=== PATIENT | male | born 1955 | race Caucasian/White ===

== ENCOUNTER 2019-03-18 08:44 | Inpatient (IN) | payer MEDICARE, MEDICAID ==
[~2019-03-18] VITALS: Ht 172.7 cm; Wt 65.8 kg
[2019-03-18 10:54] LABS: BASOPHILS 0.1 % (0-2); EOSINOPHILS 0.1 % (0-7); HEMATOCRIT 48.3 % (42.0-54.0); HEMOGLOBIN 16.7 g/dL (13.5-17.5); IMMATURE GRANULOCYTES 0.3 % (0-5); MCH 31.8 pg (26.0-34.0); MCHC 34.6 g/dL (31.0-37.0); MEAN PLATELET VOLUME 9.9 fL (7.4-10.4); MONOCYTES 3.9 % (2-11); NEUTROPHILS 86.6 % (40-80); PLATELET COUNT 198 10x3/uL (130-400); RBC 5.25 10x6/uL (4.20-6.10); WBC 11.8 10x3/uL (4.8-10.8)
[2019-03-18 11:09] LABS: CALC OSMOLALITY 276 mosm/kg (275-300); CALCIUM 9.7 mg/dL (8.5-10.1); CARBON DIOXIDE 25.8 mmol/L (21.0-32.0); CHLORIDE - SERUM 101 mmol/L (98-107); CREATININE - SERUM 0.8 mg/dL (0.6-1.3); GLUCOSE 112 mg/dL (74-106); POTASSIUM - SERUM 4.1 mmol/L (3.5-5.1); SODIUM 137 mmol/L (136-145); UREA NITROGEN 17 mg/dL (7-18); eGFR NON AFRICAN AMERICAN > 90 mL/min (90-120)
[2019-03-18 11:12] LABS: APTT 28.2 SECONDS (22.8-39.4); INR 1.09 (0.85-1.17); PROTIME 13.6 SECONDS (11.6-15.0)
[2019-03-18 11:14] LABS: ALKALINE PHOSPHATASE 45 U/L (46-116); ALT (SGPT) 28 U/L (10-68); BILIRUBIN - TOTAL 0.54 mg/dL (0.2-1.3); PROTEIN - SERUM 8.7 g/dL (6.4-8.2)
[2019-03-18 12:25] VITALS: BP 127/71; BMI 22.0
[2019-03-18 15:40] LABS: CHOL - HDL RATIO 4.9 ratio (2.3-4.9); LDL-HDL RATIO 3.6 ratio (1.5-3.5)
--- NOTE | 2019-03-18 15:41 | MORECARE ---
CASE MANAGEMENT DISCHARGE SUMMARY PATIENT: MARIA D DE LA FUENTE UNIT: [id number] ADM DATE: 03/18/19 AGE: 64 : 53 SEX: M ROOM/BED: D.2229 AUTHOR: TALA LEYVA PHYSICIAN: REFERRING PHYSICIAN: NAMRATA ALMANZA MD DATE OF SERVICE: 03/18/19 Discharge Plan Patient Name: MARIA D DE LA FUENTE [facility] [facility] 1955 Planned Disposition: Home Anticipated Discharge Date: 03/20/19 Discharge Date: Expected LOS: 2 Initial Reviewer: [email or web address] Initial Review Date: 03/18/2019 Generated: 03/18/19 4:41 pm DCPIA - Discharge Planning Initial Assessment Updated by [email or web address]: Shellie Chavira on 03/18/19 3:39 pm * Is the patient Alert and Oriented? Yes * PCP Dr. Martinez * Pharmacy [facility] * Preadmission Environment Home with Family * ADLs Independent * Equipment None * List name and contact numbers for known caregivers / representatives who currently or will assist patient after discharge: Mia Figueroa - daughter - [phone] Devi De La Fuente - spouse - [phone] * Verbal permission to speak to the caregivers and representatives has been obtained from the patient. Yes * Community resources currently utilized None * Additional services required to return to the preadmission environment? No * Can the patient safely return to the preadmission environment? Yes * Has this patient been hospitalized within the prior 30 days at any hospital? No Patient Name: MARIA D DE LA FUENTE Page [id number] at 1541 All edits/amendments must be made on the electronic document DICTATION DATE: 03/18/19 1540 [employer]: SINCERE 03/18/19 1540 RPT#: [id number] DC DATE: STATUS: ADM IN [facility] [address] [place] [address] END OF REPORT
--- NOTE | 2019-03-18 16:03 | MORECARE ---
CASE MANAGEMENT DISCHARGE SUMMARY PATIENT: MARIA D DE LA FUENTE UNIT: [id number] ADM DATE: 03/18/19 AGE: 64 : 53 SEX: M ROOM/BED: D.2229 AUTHOR: GORDON,DOC PHYSICIAN: REFERRING PHYSICIAN: NAMRATA ALMANZA MD DATE OF SERVICE: 03/18/19 Discharge Plan Patient Name: MARIA D DE LA FUENTE Facility: [facility]:[place] : 1955 Planned Disposition: Home Anticipated Discharge Date: 03/20/19 Discharge Date: Expected LOS: 2 Initial Reviewer: [email or web address] Initial Review Date: 03/18/2019 Generated: 03/18/19 5:03 pm Comments DCP- Discharge Planning Updated by [email or web address]: Shellie Chavira on 03/18/19 2:[address] DC PLAN: To his mother's house whom he cares for 4 nights a week. ANTICIPATED DC NEEDS: Denied known dc needs. CM met with patient to complete initial dc planning assessment. CM educated patient on the CM role and verbal consent given by patient to complete assessment. CM verified patient's address, phone number, and emergency contact phone numbers. Patient lives at home with his . He reports he stays with his elderly mother 4 nights and he rotates this with his brother that stays four nights. At discharge patient plans to return to his mothers since his young grandsons stay with him and feels this is a safe discharge. CM discussed availability of home health, rehab services, and medical equipment. Patient denied known discharge needs at this time. Transportation provider at discharge will be either his or his con. CM will continue to follow and will assist as needed with dc plans/needs. Shellie Chavira RN, [facility] DCPIA - Discharge Planning Initial Assessment Updated by [email or web address]: Shellie Chavira on 03/18/19 3:39 pm * Is the patient Alert and Oriented? Yes * PCP Dr. Martinez * Pharmacy [facility] * Preadmission Environment Home with Family * ADLs Independent * Equipment None * List name and contact numbers for known caregivers / representatives who currently or will assist patient after discharge: Mia Figueroa - daughter - [phone] Devi De La Fuente - spouse - [phone] * Verbal permission to speak to the caregivers and representatives has been obtained from the patient. Yes * Community resources currently utilized None * Additional services required to return to the preadmission environment? No * Can the patient safely return to the preadmission environment? Yes * Has this patient been hospitalized within the prior 30 days at any hospital? No Last DP export: 03/18/19 2:41 p Patient Name: MARIA D DE LA FUENTE Page [id number] at 1603 All edits/amendments must be made on the electronic document DICTATION DATE: 03/18/19 160 FITTING ROOM CHECKER: SINCERE 03/18/19 160 RPT#: [id number] DC DATE: STATUS: ADM IN [facility] [address] [place] [address] END OF REPORT
[2019-03-18 16:20] LABS: CKMB 0.8 U/L (0.0-3.6); CREATINE KINASE 206 UL (21-232); TROPONIN-I < 0.017 ng/mL (0.000-0.060)
[2019-03-18 16:34] VITALS: BP 117/82
[2019-03-18 17:39] LABS: APPEARANCE CLEAR (CLEAR); COLOR DK YELLOW (YELLOW)
[2019-03-18 17:41] LABS: BILIRUBIN NEGATIVE (NEGATIVE); GLUCOSE NEGATIVE (NEGATIVE); KETONE NEGATIVE (NEGATIVE); NITRITE NEGATIVE (NEGATIVE); PROTEIN NEGATIVE (NEGATIVE); SPECIFIC GRAVITY 1.015 (1.005-1.020); UROBILINOGEN NORMAL (NORMAL)
--- NOTE | 2019-03-18 19:18 | NUR ---
IN BED WITH FAMILY AT SIDE, ABLE TO VOICE ALL NEEDS. COMPLAINS OF PAIN TO LUMBAR AREA, WILL TREAT WITH MEDICATION. SHOWS NO S/S OF ANY OTHER ACUTE DISTRESS.
--- NOTE | 2019-03-18 19:25 | NUR ---
NOTIFIED KALEB YADAV OF CTA RESULTS ORDERED.
[2019-03-18 20:46] LABS: CKMB 0.9 U/L (0.0-3.6); CREATINE KINASE 224 UL (21-232)
[2019-03-18 20:47] LABS: TROPONIN-I < 0.017 ng/mL (0.000-0.060)
[2019-03-18 21:15] VITALS: BP 119/70
--- NOTE | 2019-03-18 23:18 | NUR ---
I have reviewed this patient and I concur with the Shift Assessment completed by the Licensed Practical Nurse today this shift.
[2019-03-19 01:04] VITALS: BP 109/72
[2019-03-19 02:38] LABS: BASOPHILS 0.1 % (0-2); EOSINOPHILS 1.7 % (0-7); HEMATOCRIT 45.7 % (42.0-54.0); HEMOGLOBIN 15.6 g/dL (13.5-17.5); IMMATURE GRANULOCYTES 0.3 % (0-5); LYMPHOCYTES 22.2 % (15-50); MCH 31.6 pg (26.0-34.0); MCHC 34.1 g/dL (31.0-37.0); MCV 92.5 fL (80.0-100.0); MEAN PLATELET VOLUME 9.7 fL (7.4-10.4); MONOCYTES 7.1 % (2-11); NEUTROPHILS 68.6 % (40-80); RBC 4.94 10x6/uL (4.20-6.10)
[2019-03-19 02:46] LABS: PLATELET COUNT 157 10x3/uL (130-400); WBC 8.7 10x3/uL (4.8-10.8)
[2019-03-19 03:00] LABS: ALBUMIN 3.3 g/dL (3.4-5.0); ALKALINE PHOSPHATASE 39 U/L (46-116); ALT (SGPT) 22 U/L (10-68); BILIRUBIN - TOTAL 0.61 mg/dL (0.2-1.3); CALC OSMOLALITY 274 mosm/kg (275-300); CALCIUM 8.7 mg/dL (8.5-10.1); CARBON DIOXIDE 29.6 mmol/L (21.0-32.0); CHLORIDE - SERUM 102 mmol/L (98-107); CKMB 0.7 U/L (0.0-3.6); CREATINE KINASE 197 UL (21-232); CREATININE - SERUM 0.7 mg/dL (0.6-1.3); GLUCOSE 112 mg/dL (74-106); POTASSIUM - SERUM 3.9 mmol/L (3.5-5.1); PROTEIN - SERUM 7.5 g/dL (6.4-8.2); SODIUM 137 mmol/L (136-145); UREA NITROGEN 13 mg/dL (7-18); eGFR NON AFRICAN AMERICAN > 90 mL/min (90-120)
[2019-03-19 03:01] LABS: TROPONIN-I < 0.017 ng/mL (0.000-0.060)
[2019-03-19 05:50] VITALS: BP 130/78
[2019-03-19 08:36] VITALS: BP 120/68
[2019-03-19 12:32] VITALS: BP 120/72
[2019-03-19 12:45] VITALS: Ht 172.7 cm; Wt 65.8 kg
[2019-03-19] MEDS ORDERED: ALBUTEROL SULF8.5 GM INH (16:14)
--- NOTE | 2019-03-19 17:10 | NUR ---
OK TO DC , SPOKE WITH DR UMANZOR
--- NOTE | 2019-03-23 16:22 | MORECARE ---
CASE MANAGEMENT DISCHARGE SUMMARY PATIENT: MARIA D DE LA FUENTE UNIT: [id number] ADM DATE: 03/18/19 AGE: 64 : 53 SEX: M ROOM/BED: D.2229 AUTHOR: GORDON,DOC PHYSICIAN: REFERRING PHYSICIAN: NAMRATA ALMANZA MD DATE OF SERVICE: 03/23/19 Discharge Plan Patient Name: MARIA D DE LA FUENTE Facility: [facility]:[place] : 1955 Planned Disposition: Home Anticipated Discharge Date: 03/20/19 Discharge Date: 03/19/2019 Expected LOS: 2 Initial Reviewer: [email or web address] Initial Review Date: 03/18/2019 Generated: 03/23/19 5:22 pm DCP- Discharge Planning Updated by [email or web address]: Shellie Chavira on 03/18/19 2:[address] DC PLAN: To his mother's house whom he cares for 4 nights a week. ANTICIPATED DC NEEDS: Denied known dc needs. CM met with patient to complete initial dc planning assessment. CM educated patient on the CM role and verbal consent given by patient to complete assessment. CM verified patient's address, phone number, and emergency contact phone numbers. Patient lives at home with his . He reports he stays with his elderly mother 4 nights and he rotates this with his brother that stays four nights. At discharge patient plans to return to his mothers since his young grandsons stay with him and feels this is a safe discharge. CM discussed availability of home health, rehab services, and medical equipment. Patient denied known discharge needs at this time. Transportation provider at discharge will be either his or his con. CM will continue to follow and will assist as needed with dc plans/needs. Shellie Chavira RN, [facility] DCPIA - Discharge Planning Initial Assessment Updated by [email or web address]: Shellie Chavira on 03/18/19 3:39 pm * Is the patient Alert and Oriented? Yes * PCP Dr. Martinez * Pharmacy [facility] * Preadmission Environment Home with Family * ADLs Independent * Equipment None * List name and contact numbers for known caregivers / representatives who currently or will assist patient after discharge: Mia Figueroa - daughter - [phone] Devi De La Fuente - spouse - [phone] * Verbal permission to speak to the caregivers and representatives has been obtained from the patient. Yes * Community resources currently utilized None * Additional services required to return to the preadmission environment? No * Can the patient safely return to the preadmission environment? Yes * Has this patient been hospitalized within the prior 30 days at any hospital? No Last DP export: 03/18/19 3:03 p Patient Name: MARIA D DE LA FUENTE Page [id number] at 1622 All edits/amendments must be made on the electronic document DICTATION DATE: 03/23/191621 PHARMACY ORDER ENTRY TECHNICIAN: SINCERE 03/23/191621 RPT#: [id number] DC DATE:03/19/19 STATUS: DIS IN [facility] [address] [place] [address] END OF REPORT
== END 2019-03-19 17:37 | disposition home or self-care (01) | DRG 552 ==
LOC: D.ER 08:44 → D.MS 11:48
PROVIDERS: Family Medicine; ADMIT Internal Medicine Nephrology; ATTEND Internal Medicine Nephrology
DX: S32.019A Unspecified fracture of first lumbar vertebra, initial encounter for closed fracture (principal); W19.XXXA Unspecified fall, initial encounter; I71.4 Abdominal aortic aneurysm, without rupture; R06.01 Orthopnea; R06.00 Dyspnea, unspecified; R41.82 Altered mental status, unspecified; M19.90 Unspecified osteoarthritis, unspecified site; I25.10 Atherosclerotic heart disease of native coronary artery without angina pectoris; G35 Multiple sclerosis; F17.210 Nicotine dependence, cigarettes, uncomplicated; R55 Syncope and collapse; J43.9 Emphysema, unspecified; R91.1 Solitary pulmonary nodule; R59.0 Localized enlarged lymph nodes; I73.9 Peripheral vascular disease, unspecified

== ENCOUNTER → 2019-04-24 09:08 | Outpatient (CLI) | payer MEDICARE, MEDICAID ==
[2019-03-19 12:45] VITALS: BMI 22.0
[~2019-04-24 09:08] MED LIST: ALBUTEROL SULF8.5 GM INH
== END | disposition home or self-care (01) ==
LOC: D.HCCARDIO 09:08
PROVIDERS: ATTEND Internal Medicine Cardiovascular Disease
DX: I25.10 Atherosclerotic heart disease of native coronary artery without angina pectoris (principal)